=== PATIENT | female | born 1980 | race African-American/Black ===

== ENCOUNTER 2023-08-13 09:53 | Emergency (ER) | payer OTHER ==
[2023-08-13 10:41] VITALS: BP 148/96; PULSE 87; RESP 17; TEMP 98.7; BMI 41.5
[2023-08-13] MEDS ORDERED: DEXAMETHASONE SOD PHOSPHATE 10 MG/1 ML VIAL IM ONE (10:41)
[2023-08-13] MEDS ORDERED: ACETAMINOPHEN 500 MG TABLET (FP) PO ONE (10:41)
[2023-08-13] MEDS ORDERED: LIDOCAINE 5% TOPICAL PATCH TP ONE (10:41)
[2023-08-13] MEDS ORDERED: KETOROLAC TROMETHAMINE 30 MG/1 ML VIAL IM ONE (10:41)
[2023-08-13] MEDS ORDERED: ACETAMINOPHEN 500 MG TABLET (FP) ONE (10:49)
[2023-08-13] MEDS ORDERED: LIDOCAINE 4% PATCH TP ONE ×2 (10:49→11:09)
[2023-08-13] MEDS ORDERED: DEXAMETHASONE SOD PHOSPHATE 10 MG/1 ML VIAL ONE (10:49)
[2023-08-13] MEDS ORDERED: KETOROLAC TROMETHAMINE 30 MG/1 ML VIAL ONE (10:49)
[2023-08-13] MEDS ORDERED: LIDOCAINE PATCH REMOVAL MC ONE (22:00)
== END 2023-08-13 12:03 | disposition home or self-care (01) ==
LOC: JERFT 09:53
PROC: 3E0233Z Introduction of Anti-inflammatory into Muscle, Percutaneous Approach (ICD-10-PCS; principal; 2023-08-13)
PROC: 3E023GC Introduction of Other Therapeutic Substance into Muscle, Percutaneous Approach (ICD-10-PCS; 2023-08-13)
DX: M25.562 Pain in left knee (principal); G89.29 Other chronic pain; S83.512A Sprain of anterior cruciate ligament of left knee, initial encounter; W19.XXXA Unspecified fall, initial encounter
CPT/HCPCS: 99284-25; J1100